=== PATIENT | male | born 1945 | race Caucasian/White ===

== ENCOUNTER 2017-05-30 10:16 | Day surgery (SDC) | payer OTHER ==
[~2017-05-30] VITALS: Ht 177.8 cm; Wt 113.0 kg
[~2017-05-30 10:16] MED LIST: GLUCOTROL XL10 MG PO; GLUCOTROL5 MG PO; NOVOLIN,HU100 UNITS/ SC; SYNTHROID88 MCG PO; TOPROL XL25 MG PO; ZESTRIL10 MG PO
[2017-05-30 11:04] LABS: POINT-OF-CARE METER ID UU14174212
[2017-05-30 11:15] VITALS: BP 164/89
[2017-05-30 14:14] LABS: POINT-OF-CARE METER ID UU13113675
[2017-05-30 14:30] VITALS: BP 152/65
== END 2017-05-30 14:58 | disposition home or self-care (01) ==
LOC: SDC 10:16
PROVIDERS: Ophthalmology
DX: H43.12 Vitreous hemorrhage, left eye (principal); E11.3532 Type 2 diabetes mellitus with proliferative diabetic retinopathy with traction retinal detachment not involving the macula, left eye; Z79.4 Long term (current) use of insulin
CPT/HCPCS: 82948; 93005; J0690; J1100; J2795